=== PATIENT | male | born 1995 | race Caucasian/White ===

== ENCOUNTER → 2017-09-18 07:02 | Outpatient (CLI) | payer SELFPAY, OTHER ==
--- NOTE | 2017-09-18 07:07 | CT_ITS ---
STUDY: CT TEMPORAL BONES WITHOUT CONTRAST - ATTN: I.A.C. S REASON FOR EXAM: Male, 21 years old. CHOLESTEATOMA OF LEFT EAR. prior tympanomastoidectomy 11 years ago, with concern of recurrence. attention eardrum. patient hearing muffled sounds RADIATION DOSAGE (If Supplied By Facility): CTDIvol = ( 82.28 ) mGy, DLP = ( 986.76 ) mGycm TECHNIQUE: The patient was scanned in a multi detector CT scanner. Transaxial imaging was performed. Sagittal and coronal images were reconstructed. Individualized dose optimization techniques were used for this CT. COMPARISON: None. FINDINGS: RIGHT TEMPORAL BONE Normal right internal auditory canal. Normal visualized ossicles and tympanic cavity. Normal right cochlea and semicircular canals. Normal vestibular aqueduct. Normal right petrous carotid artery. Normal right jugular fossa. Normal right mastoid air cells. Normal right petrous apex. LEFT TEMPORAL BONE Normal left internal auditory canal. Prosthetic metallic ossicles. Thickening of the tympanic membrane. There is fluid in the left middle ear. Normal left cochlea and semicircular canals. Normal vestibular aqueduct. Normal left petrous carotid artery. Normal left jugular fossa. There has been resection of the left mastoid air cells. Fluid in the left mastoid air cell. Normal left petrous apex. Scutum is not eroded. CT/Orb Sella Post Fossa Ear w/o IMPRESSION: Prosthetic left metallic ossicles. Thickening of the tympanic membrane. There is fluid in the left middle ear. There has been resection of the left mastoid air cells. Fluid in the left mastoid air cell. Scutum is not eroded. Cholesteatoma is not visualized. Electronically Signed: Yadiel Ramirez MD at 16:35 EDT , Service support ,
== END ==
PROVIDERS: Family Provider Preventive Medicine Occupational Medicine; PCP Preventive Medicine Occupational Medicine
DX: H71.92 Unspecified cholesteatoma, left ear (principal)
CPT/HCPCS: 70480